=== PATIENT | male | born 1950 | race Caucasian/White ===

== ENCOUNTER 2018-01-05 19:29 | Emergency (ER) | payer OTHER, MEDICARE ==
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
== END 2018-01-05 22:10 | disposition home or self-care (01) ==
LOC: ERS 19:29
DX: S01.01XA Laceration without foreign body of scalp, initial encounter (principal); Z86.73 Personal history of transient ischemic attack (TIA), and cerebral infarction without residual deficits; F41.9 Anxiety disorder, unspecified; F32.9 Major depressive disorder, single episode, unspecified; Z79.899 Other long term (current) drug therapy; W22.8XXA Striking against or struck by other objects, initial encounter
CPT/HCPCS: 12002; 70450

== ENCOUNTER 2018-05-31 15:16 | Emergency (ER) | payer MEDICARE, OTHER ==
--- NOTE | 2018-05-31 16:21 | RAD ---
CHEST TWO VIEWS: History: Fall. Chest injury. FINDINGS: Cardiac silhouette and pulmonary vasculature are unremarkable. Lungs are slightly hyperinflated. Medi astinum is midline. No confluent airspace consolidation, pneumothorax or pleural fluid. Irregularity of the posterolateral aspect of right ribs 7 and 8 shows corticated margins and has the appearance of old healed fractures. IMPRESSION: Probably old right posterolateral midrib fractures. No evidence of pneumothorax. POS: [facility]
--- NOTE | 2018-05-31 16:24 | RAD ---
RIGHT SHOULDER 3 VIEWS: Date: 05/31/18 HISTORY: Fall. Pain. COMPARISON: None. FINDINGS: There are multiple right-sided posterior rib fractures involving the right posterior 7th and 8th ribs . No underlying pneumothorax is appreciated. The right glenohumeral joint alignment is normal. Acromioclavicular alignment is normal. IMPRESSION: Right posterior 7th and 8th rib fractures. No underlying pneumothorax. POS: [facility]
--- NOTE | 2018-05-31 18:43 | RAD ---
RIGHT RIBS THREE VIEW 05/31/18 INDICATION: Fall with right rib pain. COMPARISON: None. FINDINGS: There are mildly displaced anterolateral right 5th through 9th rib fractures. No contusion is grossly evident. No pneumothorax is demonstrated. The visualized heart appears within normal limits. IMPRESSION: Mildly displaced anterolateral right 5th through 9th rib fractures. POS: [facility]
[2018-05-31] MEDS ORDERED: traMADol HCl 50 MG TAB ONE ×2 (19:00→19:01)
[2018-05-31] MEDS ORDERED: Ketorolac Tromethamine 60 MG/2 ML VIAL ONE ×2 (19:01)
== END 2018-05-31 19:50 | disposition home or self-care (01) ==
LOC: ERS 15:16
DX: S22.41XA Multiple fractures of ribs, right side, initial encounter for closed fracture (principal); F41.9 Anxiety disorder, unspecified; F32.9 Major depressive disorder, single episode, unspecified; Z86.73 Personal history of transient ischemic attack (TIA), and cerebral infarction without residual deficits; Z79.899 Other long term (current) drug therapy; W19.XXXA Unspecified fall, initial encounter
CPT/HCPCS: 71046; 96372; J1885

== ENCOUNTER 2019-02-07 12:25 | Emergency (ER) | payer OTHER ==
--- NOTE | 2019-02-07 13:56 | RAD ---
Exam:2 views right femur HISTORY: Pain COMPARISON: None FINDINGS: No fracture. Cortical irregularity. No periosteal reaction. IMPRESSION: No fracture.
--- NOTE | 2019-02-07 13:57 | RAD ---
Exam:4 views right HISTORY: Pain. COMPARISON: None FINDINGS: No significant suprapatellar effusion. No fracture or malalignment. There is mild bone demineralization Moderate to severe degenerative change in the medial compartment. Lateral compartment is unremarkable . Moderate degenerative change patellofemoral compartment. IMPRESSION: Bicompartmental degenerative change.
--- NOTE | 2019-02-07 13:57 | RAD ---
Exam:2 views right hip HISTORY: Pain COMPARISON: None FINDINGS: Mild to moderate loss of joint space height. Contour of the femoral head is maintained. Fem oral length is unremarkable. Visualized bony pelvis is unremarkable. IMPRESSION: Moderate loss of right hip joint space height.
[2019-02-07 14:16] LABS: #Eosinphils 0.1 thou/uL (0.0-0.7); #Lymphocytes 2.2 thou/uL (1.20-3.40); #Monocytes 0.4 thou/uL (0.11-0.59); #Neutrophils 4.1 thou/uL (1.40-6.50); %Basophils 0.5 % (0.0-1.0); %Eosinophils 1.1 % (0.0-10.0); %Lymphocytes 32.3 % (21.0-51.0); %Neutrophils 60.1 % (42.0-75.0); Hemoglobin 13.4 g/dL (14.0-18.0); Mean Corpuscular Hemoglobin 31.9 pg (27.0-31.0); Mean Platelet Volume 8.5 fL (7.4-10.4); Platelet Count 180 thou/uL (130-400); RBC Distribution Width 15.3 % (11.5-14.5); Red Blood Cell (RBC) Count 4.21 mill/uL (4.70-6.10); White Blood Cell (WBC) Count 6.8 thou/uL (4.8-10.8)
[2019-02-07] MEDS ORDERED: Morphine 4 MG/ML VIAL ONE (14:28)
--- NOTE | 2019-02-07 14:29 | CT ---
CT PELVIS WITHOUT CONTRAST: HISTORY: Hip, thigh and knee pain, onset two days ago. Difficulty walking. COMPARISON: None. FINDINGS: The visualized mesentery and alimentary canal are grossly unremarkable. No evidence of bowel obstruct ion. Scattered fecal material in a nondistended, nondilated colon. Mild prominence of the urinary bladder with bladder wall mucosal thickening, nonspecific. Cystoscopy is recommended on a non-emergent basis to exclude underlying neoplasm. Sacral alae appear to be intact. Fat attenuation of the neural foramina is noted. Sacroiliac joints are patent and symmetric. The bony pelvis is intact. Both obturator rings are intact. Unremarkable symphysis pubis. The contour of both femoral heads is maintained. There is no evidence of a right or left hip fracture . Mild degenerative change involving both hip joint spaces. Moderate to severe central canal stenosis at L4-L5 due to degenerative disc disease. Vacuum disc phen omenon at L5-S1 without high grade central canal stenosis. Moderate left neural foraminal narrowing at L5-S1. IMPRESSION: 1. No evidence of acute pathology with regard to the right hip. MRI if clinically indicated. 2. Mucosal thickening of the urinary bladder. Non-emergent cystoscopy. 3. Degenerative changes of the lumbar spine as described above. Transcribed Date/Time: 02/07/2019 2:33 PM
[2019-02-07 14:41] LABS: ALT (SGPT) 13 U/L (8-55); AST (SGOT) 16 U/L (5-34); Albumin 4.5 g/dL (3.4-4.8); Alkaline Phosphatase 107 U/L (40-110); Anion Gap 13 mmol/L (10-20); BUN (Urea Nitrogen) 11 mg/dL (8.4-25.7); Bilirubin, Total 0.6 mg/dL (0.2-1.2); CK (CPK) 38 U/L (30-200); CRP (Inflammatory) 0.95 mg/dL (= or < 0.5); Calc. Creatinine Clearance 0 mL/min (70-130); Calcium 9.1 mg/dL (7.8-10.44); Carbon Dioxide 28 mmol/L (23-31); Chloride 102 mmol/L (98-107); Estimated GFR-MDRD Greater than 90; Globulin 2.3 g/dL (2.4-3.5); Glucose 143 mg/dL (80-115); Lipase 15 U/L (8-78); Potassium 3.8 mmol/L (3.5-5.1); Protein, Total 6.8 g/dL (5.8-8.1); Sodium 139 mmol/L (136-145)
[2019-02-07 16:57] LABS: Bilirubin Negative (Negative); Blood, Urine Negative (Negative); Clarity Clear (Clear); Glucose, Urine (Dipstick) Normal (Negative); Leukocyte Negative Leu/uL (Negative); Nitrite Negative (Negative); Protein, Urine (Dipstick) Negative (Neg-Trace); Urobilinogen Normal mg/dL (Less than 2)
== END 2019-02-07 23:30 ==
LOC: ERS 12:25
DX: M25.551 Pain in right hip (principal); F41.9 Anxiety disorder, unspecified; Z86.73 Personal history of transient ischemic attack (TIA), and cerebral infarction without residual deficits; Z79.899 Other long term (current) drug therapy; Z79.51 Long term (current) use of inhaled steroids
CPT/HCPCS: 36415; 72192; 80053; 81003; 82550; 83690; 85025; 85652; 86140; 96361; 96374; J2270

== ENCOUNTER 2019-06-04 09:52 | Emergency (ER) | payer OTHER ==
--- NOTE | 2019-06-04 10:23 | RAD ---
EXAM: CHEST TWO VIEWS 06/04/2019 10:20 AM HISTORY: Cough and congestion COMPARISON: May 31, 2018 FINDINGS: Lungs: Areas of mild scarring involving the right lung base are stable. No new airspace opacity or p leural effusion is demonstrated. Heart: Mild cardiomegaly is stable. Pulmonary Vessels: Normal. Costophrenic Angles: Clear. Pneumothorax: None. Osseous Structures: There is stable healed fracture deformity involving the posterior lateral right seventh and eighth ribs. There is scattered degenerative and osteoarthritic change present. Additional Findings: None. IMPRESSION: No significant acute intrathoracic disease. Stable chronic lung changes. Stable mild cardiomegaly.
[2019-06-04] MEDS ORDERED: Lidocaine 1% PF 5 ML VIAL ONE (11:14)
[2019-06-04] MEDS ORDERED: cefTRIAXone\\ROCEPHIN 1 GM VIAL ONE (11:14)
[2019-06-04] MEDS ORDERED: Azithromycin 250 MG TAB ONE (11:14)
== END 2019-06-04 11:58 | disposition home or self-care (01) ==
LOC: ERS 09:52
DX: R05 Cough (principal); R09.02 Hypoxemia; K56.609 Unspecified intestinal obstruction, unspecified as to partial versus complete obstruction; F41.9 Anxiety disorder, unspecified; F32.9 Major depressive disorder, single episode, unspecified; Z86.73 Personal history of transient ischemic attack (TIA), and cerebral infarction without residual deficits; Z79.899 Other long term (current) drug therapy
CPT/HCPCS: 71046; 93005; 96372; J0696; J2001

== ENCOUNTER 2022-07-20 15:56 | Inpatient (IN) | payer OTHER ==
[~2022-07-20 15:56] MED LIST: Iopamidol-370 76% 500 ML MDV (1 ML CHARGE) ONE
[2022-07-20 16:48] LABS: Bacteria/HPF None Seen HPF (None Seen); Bilirubin Negative (Negative); Blood, Urine 2+ (Negative); Glucose, Urine (Dipstick) Normal (Negative); Ketone, Urine Negative (Negative); Leukocyte Negative Leu/uL (Negative); Nitrite Negative (Negative); Protein, Urine (Dipstick) 10 mg/dL (Neg-Trace); RBC/HPF Greater than 50 HPF (0-3); Specific Gravity, Urine 1.025 (1.002-1.036); Squamous Epithelial None Seen HPF (0-3); Urobilinogen Normal mg/dL (Less than 2); WBC/HPF 0-3 HPF (0-3); pH, Urine 5.5 (5.0-9.0)
[2022-07-20 16:50] LABS: Clarity Cloudy (Clear)
[2022-07-20 16:55] LABS: #Eosinphils 0.1 thou/uL (0.0-0.7); #Lymphocytes 1.5 thou/uL (1.20-3.40); #Monocytes 0.4 thou/uL (0.11-0.59); #Neutrophils 7.4 thou/uL (1.40-6.50); %Basophils 0.3 % (0.0-1.0); %Eosinophils 1.2 % (0.0-10.0); %Lymphocytes 15.9 % (21.0-51.0); %Monocytes 4.1 % (0.0-10.0); %Neutrophils 78.4 % (42.0-75.0); Hemoglobin 12.3 g/dL (14.0-18.0); Mean Corpuscular HGB CONC 30.6 g/dL (32.0-36.0); Mean Corpuscular Hemoglobin 29.1 pg (27.0-31.0); Mean Corpuscular Volume 95.2 fl (78.0-98.0); Mean Platelet Volume 8.7 fL (7.4-10.4); Platelet Count 255 10x3/uL (130-400); RBC Distribution Width 18.7 % (11.5-14.5); Red Blood Cell (RBC) Count 4.21 mill/uL (4.70-6.10); White Blood Cell (WBC) Count 9.5 10x3/uL (4.8-10.8)
[2022-07-20 17:20] LABS: ALT (SGPT) 10 U/L (8-55); AST (SGOT) 12 U/L (5-34); Alkaline Phosphatase 100 U/L (40-110); Anion Gap 14 mmol/L (10-20); BUN (Urea Nitrogen) 12 mg/dL (8.4-25.7); Bilirubin, Total 0.9 mg/dL (0.2-1.2); Calc. Creatinine Clearance 0 mL/min (70-130); Calcium 9.4 mg/dL (7.8-10.44); Carbon Dioxide 26 mmol/L (23-31); Chloride 106 mmol/L (98-107); Estimated GFR 92; Globulin 2.4 g/dL (2.4-3.5); Glucose 96 mg/dL (83-110); Lipase 10 U/L (8-78); Potassium 3.5 mmol/L (3.5-5.1); Protein, Total 6.4 g/dL (5.8-8.1); Sodium 142 mmol/L (136-145)
[2022-07-20] MEDS ORDERED: Acetaminophen 325 MG TAB PO PRN (22:29)
[2022-07-20] MEDS ORDERED: Ondansetron PF 4 MG/2 ML Vial IVP PRN (22:29)
[2022-07-20 22:34] LABS: Troponin I Less than 0.010 ng/mL (< 0.028)
[2022-07-20] MEDS ORDERED: Mineral Oil ENEMA PR SCH (22:45)
[2022-07-20 23:21] LABS: Amphetamine Not Detected (NotDetected); Barbiturates Screen Detected (NotDetected); Benzodiazepine Screen Not Detected (NotDetected); Cocaine Metabolite Screen Not Detected (NotDetected); Methadone Not Detected (NotDetected); Methamphetamine Not Detected (NotDetected); Opiate Screen Not Detected (NotDetected); Oxycodone Screen Not Detected (NotDetected); Phencyclidine (PCP) Not Detected (NotDetected); THC/Cannabinoid Screen Not Detected (NotDetected); Tricyclic Screen Not Detected (NotDetected)
[2022-07-21] MEDS ORDERED: VANCOMYCIN 2 GRAM/500 ML BAG 2 GM in Premix Bag 1 BAG IVPB SCH (00:15)
[2022-07-21 02:45] LABS: #Basophils 0.1 thou/uL (0.0-0.2); #Eosinphils 0.2 thou/uL (0.0-0.7); #Lymphocytes 2.2 thou/uL (1.20-3.40); #Monocytes 0.4 thou/uL (0.11-0.59); #Neutrophils 4.2 thou/uL (1.40-6.50); %Basophils 0.8 % (0.0-1.0); %Eosinophils 2.6 % (0.0-10.0); %Lymphocytes 30.8 % (21.0-51.0); %Monocytes 6.3 % (0.0-10.0); %Neutrophils 59.6 % (42.0-75.0); Hemoglobin 11.7 g/dL (14.0-18.0); Mean Corpuscular HGB CONC 33.1 g/dL (32.0-36.0); Mean Corpuscular Hemoglobin 31.7 pg (27.0-31.0); Mean Corpuscular Volume 95.8 fl (78.0-98.0); Mean Platelet Volume 8.9 fL (7.4-10.4); Platelet Count 210 10x3/uL (130-400); RBC Distribution Width 18.5 % (11.5-14.5)
[2022-07-21 03:16] LABS: Troponin I Less than 0.010 ng/mL (< 0.028)
[2022-07-21 03:18] LABS: Anion Gap 13 mmol/L (10-20); BUN (Urea Nitrogen) 10 mg/dL (8.4-25.7); Calc. Creatinine Clearance 0 mL/min (70-130); Calcium 9.1 mg/dL (7.8-10.44); Carbon Dioxide 26 mmol/L (23-31); Chloride 107 mmol/L (98-107); Estimated GFR 93; Glucose 80 mg/dL (83-110); Potassium 3.3 mmol/L (3.5-5.1); Sodium 143 mmol/L (136-145)
[2022-07-21 04:20] VITALS: BMI 26.4
[2022-07-21] MEDS ORDERED: FISH OIL CA PO SCH (09:00)
[2022-07-21] MEDS ORDERED: [UNRECOGNIZED DRUG - OTHER] PO SCH (09:00)
[2022-07-21] MEDS ORDERED: Senokot S 8.6-50 MG TAB PO SCH (09:00)
[2022-07-21] MEDS ORDERED: EPA PO SCH (09:00)
[2022-07-21] MEDS ORDERED: DHA PO SCH (09:00)
[2022-07-21] MEDS ORDERED: Polyethylene Glycol 3350 17 GM Packet PO SCH (09:00)
[2022-07-21] MEDS ORDERED: Non-Formulary Item 1 EACH (Pregabalin [Lyrica] 150 MG Capsule) PO SCH (09:00)
[2022-07-21] MEDS ORDERED: Lidocaine 4% Patch TD SCH (09:00)
[2022-07-21] MEDS ORDERED: OMEGA PO SCH (09:00)
[2022-07-21] MEDS: Primidone 50 MG TAB PO SCH ×2 (09:30→21:44)
[2022-07-21] MEDS: Trospium 20 MG TAB PO SCH ×2 (09:30→21:45)
[2022-07-21] MEDS: Clopidogrel Bisulfate 75 MG TAB PO SCH (09:31)
[2022-07-21] MEDS: Bupropion 150 MG SR TAB PO SCH (09:31)
[2022-07-21] MEDS: Senokot S 8.6-50 MG TAB PO SCH ×2 (10:33→21:46)
[2022-07-21] MEDS: VANCOMYCIN 1.25 GM/250 ML BAG 1.25 GM in Premix Bag 1 BAG IVPB SCH (14:16)
[2022-07-21] MEDS ORDERED: GoLYTELY 4,000 ml Bottle PO SCH (17:45)
[2022-07-21] MEDS ORDERED: DULoxetine 30 MG CAP PO SCH (21:00)
[2022-07-21] MEDS ORDERED: Cetirizine HCl 10 MG TAB PO SCH (21:00)
[2022-07-21] MEDS ORDERED: Non-Formulary Item 1 EACH (Melatonin [Melatonin] 5 MG Tablet) PO SCH (21:00)
[2022-07-21] MEDS: Aripiprazole 10 MG TAB PO SCH (21:44)
[2022-07-21] MEDS: DULoxetine 30 MG CAP PO SCH (21:44)
[2022-07-21] MEDS: Melatonin 3 MG TAB PO SCH (21:44)
[2022-07-21] MEDS: Pregabalin 75 MG CAP PO SCH (21:45)
[2022-07-21] MEDS: Tamsulosin HCl 0.4 MG CAP PO SCH (21:45)
[2022-07-21] MEDS: Loratadine 10 MG TAB PO SCH (21:45)
[2022-07-21] MEDS: Cyproheptadine 4 MG TAB PO SCH (21:45)
[2022-07-21] MEDS: Polyethylene Glycol 3350 17 GM Packet PO SCH (21:46)
[2022-07-21] MEDS: Transdermal Patch Removal TOP SCH (21:47)
[2022-07-22] MEDS: VANCOMYCIN 1.25 GM/250 ML BAG 1.25 GM in Premix Bag 1 BAG IVPB SCH ×2 (02:17→14:19)
[2022-07-22] MEDS: Calcium Carbonate 500 MG ChewTAB PO PRN (03:00)
[2022-07-22 05:28] LABS: #Eosinphils 0.1 thou/uL (0.0-0.7); #Lymphocytes 1.8 thou/uL (1.20-3.40); #Monocytes 0.4 thou/uL (0.11-0.59); #Neutrophils 11.9 thou/uL (1.40-6.50); %Basophils 0.1 % (0.0-1.0); %Eosinophils 0.7 % (0.0-10.0); %Lymphocytes 12.7 % (21.0-51.0); %Monocytes 3.1 % (0.0-10.0); %Neutrophils 83.4 % (42.0-75.0); Hemoglobin 13.5 g/dL (14.0-18.0); Mean Corpuscular HGB CONC 31.7 g/dL (32.0-36.0); Mean Corpuscular Hemoglobin 30.1 pg (27.0-31.0); Mean Platelet Volume 8.7 fL (7.4-10.4); Platelet Count 254 10x3/uL (130-400); RBC Distribution Width 18.8 % (11.5-14.5); Red Blood Cell (RBC) Count 4.49 mill/uL (4.70-6.10); White Blood Cell (WBC) Count 14.3 10x3/uL (4.8-10.8)
[2022-07-22 05:48] LABS: Anion Gap 14 mmol/L (10-20); BUN (Urea Nitrogen) 10 mg/dL (8.4-25.7); Calc. Creatinine Clearance 100 mL/min (70-130); Calcium 9.9 mg/dL (7.8-10.44); Carbon Dioxide 27 mmol/L (23-31); Chloride 106 mmol/L (98-107); Estimated GFR 94; Glucose 119 mg/dL (83-110); Potassium 3.4 mmol/L (3.5-5.1); Sodium 144 mmol/L (136-145)
[2022-07-22] MEDS: Primidone 50 MG TAB PO SCH ×2 (09:30→21:35)
[2022-07-22] MEDS: Lidocaine 4% Patch TD SCH (09:30)
[2022-07-22] MEDS: Fish Oil 1,000 MG CAP PO SCH (09:30)
[2022-07-22] MEDS: Clopidogrel Bisulfate 75 MG TAB PO SCH (09:30)
[2022-07-22] MEDS: Trospium 20 MG TAB PO SCH ×2 (09:30→21:35)
[2022-07-22] MEDS: Bupropion 150 MG SR TAB PO SCH (09:30)
[2022-07-22] MEDS: Pregabalin 75 MG CAP PO SCH ×2 (09:31→21:35)
[2022-07-22] MEDS: Senokot S 8.6-50 MG TAB PO SCH ×2 (09:31→21:34)
[2022-07-22] MEDS: Polyethylene Glycol 3350 17 GM Packet PO SCH ×2 (09:33→21:35)
[2022-07-22 12:50] LABS: Vancomycin, Trough 12.5 ug/mL
[2022-07-22] MEDS: Cyproheptadine 4 MG TAB PO SCH (21:34)
[2022-07-22] MEDS: DULoxetine 30 MG CAP PO SCH (21:35)
[2022-07-22] MEDS: Cephalexin 250 MG CAP PO SCH ×2 (21:35→23:23)
[2022-07-22] MEDS: Tamsulosin HCl 0.4 MG CAP PO SCH (21:35)
[2022-07-22] MEDS: Loratadine 10 MG TAB PO SCH (21:35)
[2022-07-22] MEDS: Melatonin 3 MG TAB PO SCH (21:35)
[2022-07-22] MEDS: Aripiprazole 10 MG TAB PO SCH (21:35)
[2022-07-22] MEDS: Transdermal Patch Removal TOP SCH (21:47)
[2022-07-23 05:38] LABS: #Eosinphils 0.1 thou/uL (0.0-0.7); #Lymphocytes 2.3 thou/uL (1.20-3.40); #Monocytes 0.4 thou/uL (0.11-0.59); #Neutrophils 5.2 thou/uL (1.40-6.50); %Basophils 0.5 % (0.0-1.0); %Eosinophils 1.3 % (0.0-10.0); %Lymphocytes 28.5 % (21.0-51.0); %Monocytes 5.1 % (0.0-10.0); %Neutrophils 64.5 % (42.0-75.0); Hemoglobin 11.7 g/dL (14.0-18.0); Mean Corpuscular HGB CONC 32.4 g/dL (32.0-36.0); Mean Corpuscular Volume 95.5 fl (78.0-98.0); Mean Platelet Volume 8.6 fL (7.4-10.4); Platelet Count 195 10x3/uL (130-400); RBC Distribution Width 18.6 % (11.5-14.5); Red Blood Cell (RBC) Count 3.77 mill/uL (4.70-6.10)
[2022-07-23 06:04] LABS: Anion Gap 14 mmol/L (10-20); BUN (Urea Nitrogen) 13 mg/dL (8.4-25.7); Calc. Creatinine Clearance 102 mL/min (70-130); Calcium 9.2 mg/dL (7.8-10.44); Carbon Dioxide 24 mmol/L (23-31); Chloride 109 mmol/L (98-107); Estimated GFR 95; Glucose 108 mg/dL (83-110); Potassium 3.5 mmol/L (3.5-5.1); Sodium 143 mmol/L (136-145)
[2022-07-23] MEDS: Cephalexin 250 MG CAP PO SCH ×3 (06:16→17:43)
[2022-07-23] MEDS: Lidocaine 4% Patch TD SCH (10:01)
[2022-07-23] MEDS: Fish Oil 1,000 MG CAP PO SCH (10:02)
[2022-07-23] MEDS: Pregabalin 75 MG CAP PO SCH ×2 (10:02→20:30)
[2022-07-23] MEDS: Bupropion 150 MG SR TAB PO SCH (10:05)
[2022-07-23] MEDS: Senokot S 8.6-50 MG TAB PO SCH ×2 (10:06→20:31)
[2022-07-23] MEDS: Clopidogrel Bisulfate 75 MG TAB PO SCH (10:07)
[2022-07-23] MEDS: Primidone 50 MG TAB PO SCH ×2 (10:07→20:31)
[2022-07-23] MEDS: Polyethylene Glycol 3350 17 GM Packet PO SCH ×2 (10:07→20:30)
[2022-07-23] MEDS: Trospium 20 MG TAB PO SCH ×2 (10:08→20:30)
[2022-07-23] MEDS: Acetaminophen 500 MG TAB PO SCH ×2 (16:00→20:31)
[2022-07-23] MEDS: Cyproheptadine 4 MG TAB PO SCH (20:29)
[2022-07-23] MEDS: DULoxetine 30 MG CAP PO SCH (20:30)
[2022-07-23] MEDS: Melatonin 3 MG TAB PO SCH (20:31)
[2022-07-23] MEDS: Tamsulosin HCl 0.4 MG CAP PO SCH (20:31)
[2022-07-23] MEDS: Loratadine 10 MG TAB PO SCH (20:31)
[2022-07-23] MEDS: Aripiprazole 10 MG TAB PO SCH (20:31)
[2022-07-23] MEDS: Transdermal Patch Removal TOP SCH (20:33)
[2022-07-24] MEDS: Cephalexin 250 MG CAP PO SCH ×6 (00:22→22:20)
[2022-07-24] MEDS: Lidocaine 4% Patch TD SCH (10:11)
[2022-07-24] MEDS: Polyethylene Glycol 3350 17 GM Packet PO SCH ×2 (10:11→22:19)
[2022-07-24] MEDS: Fish Oil 1,000 MG CAP PO SCH (10:12)
[2022-07-24] MEDS: Trospium 20 MG TAB PO SCH ×2 (10:12→22:20)
[2022-07-24] MEDS: Senokot S 8.6-50 MG TAB PO SCH ×2 (10:13→22:19)
[2022-07-24] MEDS: Bupropion 150 MG SR TAB PO SCH (10:13)
[2022-07-24] MEDS: Pregabalin 75 MG CAP PO SCH ×2 (10:13→22:20)
[2022-07-24] MEDS: Primidone 50 MG TAB PO SCH ×2 (10:15→22:20)
[2022-07-24] MEDS: Clopidogrel Bisulfate 75 MG TAB PO SCH (10:15)
[2022-07-24] MEDS: Acetaminophen 500 MG TAB PO SCH ×3 (10:16→22:21)
[2022-07-24] MEDS ORDERED: GoLYTELY 4,000 ml Bottle PO SCH (18:45)
[2022-07-24] MEDS: Loratadine 10 MG TAB PO SCH (22:19)
[2022-07-24] MEDS: Tamsulosin HCl 0.4 MG CAP PO SCH (22:19)
[2022-07-24] MEDS: Melatonin 3 MG TAB PO SCH (22:19)
[2022-07-24] MEDS: DULoxetine 30 MG CAP PO SCH (22:19)
[2022-07-24] MEDS: Cyproheptadine 4 MG TAB PO SCH (22:20)
[2022-07-24] MEDS: Aripiprazole 10 MG TAB PO SCH (22:20)
[2022-07-24] MEDS: Transdermal Patch Removal TOP SCH (22:22)
[2022-07-25] MEDS: Cephalexin 250 MG CAP PO SCH ×4 (06:32→23:08)
[2022-07-25 08:59] LABS: #Eosinphils 0.2 thou/uL (0.0-0.7); #Lymphocytes 1.4 thou/uL (1.20-3.40); #Monocytes 0.3 thou/uL (0.11-0.59); #Neutrophils 4.6 thou/uL (1.40-6.50); %Basophils 0.4 % (0.0-1.0); %Eosinophils 2.4 % (0.0-10.0); %Lymphocytes 21.4 % (21.0-51.0); %Monocytes 4.2 % (0.0-10.0); %Neutrophils 71.6 % (42.0-75.0); Mean Corpuscular HGB CONC 32.2 g/dL (32.0-36.0); Mean Corpuscular Hemoglobin 30.7 pg (27.0-31.0); Mean Corpuscular Volume 95.4 fl (78.0-98.0); Mean Platelet Volume 9.2 fL (7.4-10.4); Platelet Count 169 10x3/uL (130-400); RBC Distribution Width 18.4 % (11.5-14.5); Red Blood Cell (RBC) Count 3.56 mill/uL (4.70-6.10); White Blood Cell (WBC) Count 6.5 10x3/uL (4.8-10.8)
[2022-07-25] MEDS: Senokot S 8.6-50 MG TAB PO SCH ×2 (09:04→21:22)
[2022-07-25] MEDS: Fish Oil 1,000 MG CAP PO SCH (09:04)
[2022-07-25] MEDS: Primidone 50 MG TAB PO SCH ×2 (09:04→21:23)
[2022-07-25] MEDS: Pregabalin 75 MG CAP PO SCH ×2 (09:04→21:24)
[2022-07-25] MEDS: Bupropion 150 MG SR TAB PO SCH (09:04)
[2022-07-25] MEDS: Acetaminophen 500 MG TAB PO SCH ×3 (09:05→21:23)
[2022-07-25] MEDS: Polyethylene Glycol 3350 17 GM Packet PO SCH ×2 (09:05→21:24)
[2022-07-25] MEDS: Clopidogrel Bisulfate 75 MG TAB PO SCH (09:05)
[2022-07-25] MEDS: Trospium 20 MG TAB PO SCH ×2 (09:05→21:24)
[2022-07-25] MEDS: Lidocaine 4% Patch TD SCH (09:17)
[2022-07-25 09:25] LABS: ALT (SGPT) 7 U/L (8-55); AST (SGOT) 7 U/L (5-34); Albumin 3.5 g/dL (3.4-4.8); Alkaline Phosphatase 79 U/L (40-110); Anion Gap 11 mmol/L (10-20); BUN (Urea Nitrogen) 13 mg/dL (8.4-25.7); Bilirubin, Total 0.7 mg/dL (0.2-1.2); Calc. Creatinine Clearance 105 mL/min (70-130); Calcium 9.1 mg/dL (7.8-10.44); Carbon Dioxide 27 mmol/L (23-31); Chloride 106 mmol/L (98-107); Estimated GFR 96; Glucose 88 mg/dL (83-110); Potassium 3.9 mmol/L (3.5-5.1); Protein, Total 5.5 g/dL (5.8-8.1); Sodium 140 mmol/L (136-145)
[2022-07-25] MEDS: DULoxetine 30 MG CAP PO SCH (21:22)
[2022-07-25] MEDS: Cyproheptadine 4 MG TAB PO SCH (21:22)
[2022-07-25] MEDS: Tamsulosin HCl 0.4 MG CAP PO SCH (21:22)
[2022-07-25] MEDS: Melatonin 3 MG TAB PO SCH (21:23)
[2022-07-25] MEDS: Aripiprazole 10 MG TAB PO SCH (21:23)
[2022-07-25] MEDS: Loratadine 10 MG TAB PO SCH (21:23)
[2022-07-25] MEDS: Transdermal Patch Removal TOP SCH (21:24)
[2022-07-26 05:21] LABS: #Eosinphils 0.2 thou/uL (0.0-0.7); #Lymphocytes 1.9 thou/uL (1.20-3.40); #Monocytes 0.3 thou/uL (0.11-0.59); %Basophils 0.2 % (0.0-1.0); %Eosinophils 2.6 % (0.0-10.0); %Lymphocytes 29.7 % (21.0-51.0); %Monocytes 4.1 % (0.0-10.0); %Neutrophils 63.3 % (42.0-75.0); Mean Corpuscular HGB CONC 32.9 g/dL (32.0-36.0); Mean Corpuscular Hemoglobin 31.3 pg (27.0-31.0); Mean Corpuscular Volume 95.2 fl (78.0-98.0); Mean Platelet Volume 9.1 fL (7.4-10.4); Platelet Count 179 10x3/uL (130-400); Red Blood Cell (RBC) Count 3.51 mill/uL (4.70-6.10); White Blood Cell (WBC) Count 6.4 10x3/uL (4.8-10.8)
[2022-07-26] MEDS: Cephalexin 250 MG CAP PO SCH ×3 (05:22→17:08)
[2022-07-26 05:44] LABS: ALT (SGPT) 7 U/L (8-55); AST (SGOT) 8 U/L (5-34); Albumin 3.7 g/dL (3.4-4.8); Alkaline Phosphatase 84 U/L (40-110); Anion Gap 13 mmol/L (10-20); BUN (Urea Nitrogen) 11 mg/dL (8.4-25.7); Bilirubin, Total 0.6 mg/dL (0.2-1.2); Calc. Creatinine Clearance 94 mL/min (70-130); Calcium 9.2 mg/dL (7.8-10.44); Carbon Dioxide 26 mmol/L (23-31); Chloride 105 mmol/L (98-107); Estimated GFR 92; Globulin 2.1 g/dL (2.4-3.5); Glucose 85 mg/dL (83-110); Potassium 3.5 mmol/L (3.5-5.1); Protein, Total 5.8 g/dL (5.8-8.1); Sodium 140 mmol/L (136-145)
[2022-07-26] MEDS: Lidocaine 4% Patch TD SCH (08:13)
[2022-07-26] MEDS: Polyethylene Glycol 3350 17 GM Packet PO SCH ×2 (08:14→21:57)
[2022-07-26] MEDS: Fish Oil 1,000 MG CAP PO SCH (08:15)
[2022-07-26] MEDS: Senokot S 8.6-50 MG TAB PO SCH ×2 (08:15→21:46)
[2022-07-26] MEDS: Pregabalin 75 MG CAP PO SCH ×2 (08:15→21:45)
[2022-07-26] MEDS: Primidone 50 MG TAB PO SCH ×2 (08:15→21:47)
[2022-07-26] MEDS: Trospium 20 MG TAB PO SCH ×2 (08:15→21:47)
[2022-07-26] MEDS: Clopidogrel Bisulfate 75 MG TAB PO SCH (08:15)
[2022-07-26] MEDS: Acetaminophen 500 MG TAB PO SCH ×3 (08:16→21:47)
[2022-07-26] MEDS: Bupropion 150 MG SR TAB PO SCH (08:16)
[2022-07-26] MEDS: DULoxetine 30 MG CAP PO SCH (21:46)
[2022-07-26] MEDS: Loratadine 10 MG TAB PO SCH (21:46)
[2022-07-26] MEDS: Melatonin 3 MG TAB PO SCH (21:46)
[2022-07-26] MEDS: Cyproheptadine 4 MG TAB PO SCH (21:47)
[2022-07-26] MEDS: Tamsulosin HCl 0.4 MG CAP PO SCH (21:47)
[2022-07-26] MEDS: Aripiprazole 10 MG TAB PO SCH (21:47)
[2022-07-26] MEDS: Transdermal Patch Removal TOP SCH (23:43)
[2022-07-27] MEDS: Cephalexin 250 MG CAP PO SCH ×4 (00:20→17:31)
[2022-07-27 05:26] LABS: #Eosinphils 0.2 thou/uL (0.0-0.7); #Lymphocytes 2.2 thou/uL (1.20-3.40); #Monocytes 0.4 thou/uL (0.11-0.59); #Neutrophils 3.9 thou/uL (1.40-6.50); %Basophils 0.4 % (0.0-1.0); %Eosinophils 2.8 % (0.0-10.0); %Lymphocytes 32.7 % (21.0-51.0); %Monocytes 5.4 % (0.0-10.0); %Neutrophils 58.7 % (42.0-75.0); Hemoglobin 12.2 g/dL (14.0-18.0); Mean Corpuscular HGB CONC 32.3 g/dL (32.0-36.0); Mean Corpuscular Hemoglobin 30.9 pg (27.0-31.0); Mean Corpuscular Volume 95.7 fl (78.0-98.0); Mean Platelet Volume 9.3 fL (7.4-10.4); Platelet Count 179 10x3/uL (130-400); RBC Distribution Width 18.6 % (11.5-14.5); Red Blood Cell (RBC) Count 3.95 mill/uL (4.70-6.10); White Blood Cell (WBC) Count 6.7 10x3/uL (4.8-10.8)
[2022-07-27 05:52] LABS: ALT (SGPT) 14 U/L (8-55); AST (SGOT) 17 U/L (5-34); Albumin 3.9 g/dL (3.4-4.8); Alkaline Phosphatase 95 U/L (40-110); Anion Gap 15 mmol/L (10-20); BUN (Urea Nitrogen) 8 mg/dL (8.4-25.7); Bilirubin, Total 0.5 mg/dL (0.2-1.2); Calc. Creatinine Clearance 111 mL/min (70-130); Calcium 9.5 mg/dL (7.8-10.44); Carbon Dioxide 24 mmol/L (23-31); Chloride 106 mmol/L (98-107); Estimated GFR 97; Globulin 2.4 g/dL (2.4-3.5); Glucose 88 mg/dL (83-110); Potassium 3.8 mmol/L (3.5-5.1); Protein, Total 6.3 g/dL (5.8-8.1); Sodium 141 mmol/L (136-145)
[2022-07-27] MEDS: Polyethylene Glycol 3350 17 GM Packet PO SCH ×2 (08:57→21:32)
[2022-07-27] MEDS: Senokot S 8.6-50 MG TAB PO SCH ×2 (08:58→21:34)
[2022-07-27] MEDS: Acetaminophen 500 MG TAB PO SCH ×3 (08:59→22:59)
[2022-07-27] MEDS: Pregabalin 75 MG CAP PO SCH ×2 (08:59→21:33)
[2022-07-27] MEDS: Trospium 20 MG TAB PO SCH (09:00)
[2022-07-27] MEDS: Bupropion 150 MG SR TAB PO SCH (09:00)
[2022-07-27] MEDS: Clopidogrel Bisulfate 75 MG TAB PO SCH (09:00)
[2022-07-27] MEDS: Primidone 50 MG TAB PO SCH ×2 (09:00→21:35)
[2022-07-27] MEDS: Fish Oil 1,000 MG CAP PO SCH (09:03)
[2022-07-27] MEDS: Lidocaine 4% Patch TD SCH (09:04)
[2022-07-27] MEDS: Acetaminophen 500 MG TAB PO PRN (11:36)
[2022-07-27] MEDS ORDERED: Fleet Saline Enema 133 ML BOT PR SCH (16:00)
[2022-07-27] MEDS: Tamsulosin HCl 0.4 MG CAP PO SCH (21:32)
[2022-07-27] MEDS: DULoxetine 30 MG CAP PO SCH (21:33)
[2022-07-27] MEDS: Loratadine 10 MG TAB PO SCH (21:34)
[2022-07-27] MEDS: Aripiprazole 10 MG TAB PO SCH (21:34)
[2022-07-27] MEDS: Melatonin 3 MG TAB PO SCH (21:34)
[2022-07-27] MEDS: Transdermal Patch Removal TOP SCH (21:35)
[2022-07-27] MEDS: Cyproheptadine 4 MG TAB PO SCH (21:47)
[2022-07-28] MEDS: Cephalexin 250 MG CAP PO SCH ×5 (00:49→23:09)
[2022-07-28 05:35] LABS: #Basophils 0.1 thou/uL (0.0-0.2); #Eosinphils 0.3 thou/uL (0.0-0.7); #Lymphocytes 2.1 thou/uL (1.20-3.40); #Monocytes 0.4 thou/uL (0.11-0.59); #Neutrophils 3.6 thou/uL (1.40-6.50); %Basophils 0.8 % (0.0-1.0); %Eosinophils 3.9 % (0.0-10.0); %Lymphocytes 32.7 % (21.0-51.0); %Neutrophils 56.6 % (42.0-75.0); Hemoglobin 11.9 g/dL (14.0-18.0); Mean Corpuscular HGB CONC 32.6 g/dL (32.0-36.0); Mean Corpuscular Hemoglobin 31.1 pg (27.0-31.0); Mean Corpuscular Volume 95.3 fl (78.0-98.0); Mean Platelet Volume 9.4 fL (7.4-10.4); Platelet Count 171 10x3/uL (130-400); RBC Distribution Width 18.7 % (11.5-14.5); Red Blood Cell (RBC) Count 3.84 mill/uL (4.70-6.10); White Blood Cell (WBC) Count 6.4 10x3/uL (4.8-10.8)
[2022-07-28 05:43] LABS: ALT (SGPT) 15 U/L (8-55); AST (SGOT) 20 U/L (5-34); Albumin 3.7 g/dL (3.4-4.8); Alkaline Phosphatase 92 U/L (40-110); Anion Gap 14 mmol/L (10-20); BUN (Urea Nitrogen) 7 mg/dL (8.4-25.7); Bilirubin, Total 0.5 mg/dL (0.2-1.2); Calc. Creatinine Clearance 101 mL/min (70-130); Calcium 9.5 mg/dL (7.8-10.44); Carbon Dioxide 25 mmol/L (23-31); Chloride 105 mmol/L (98-107); Estimated GFR 95; Globulin 2.3 g/dL (2.4-3.5); Glucose 82 mg/dL (83-110); Potassium 3.8 mmol/L (3.5-5.1); Sodium 140 mmol/L (136-145)
[2022-07-28] MEDS: Lidocaine 4% Patch TD SCH (09:01)
[2022-07-28] MEDS: Polyethylene Glycol 3350 17 GM Packet PO SCH ×2 (09:02→20:35)
[2022-07-28] MEDS: Senokot S 8.6-50 MG TAB PO SCH ×2 (09:04→20:31)
[2022-07-28] MEDS: Primidone 50 MG TAB PO SCH ×2 (09:05→20:33)
[2022-07-28] MEDS: Acetaminophen 500 MG TAB PO SCH ×3 (09:05→20:34)
[2022-07-28] MEDS: Bupropion 150 MG SR TAB PO SCH (09:06)
[2022-07-28] MEDS: Fish Oil 1,000 MG CAP PO SCH (09:06)
[2022-07-28] MEDS: Pregabalin 75 MG CAP PO SCH ×2 (09:06→20:31)
[2022-07-28] MEDS: Clopidogrel Bisulfate 75 MG TAB PO SCH (09:06)
[2022-07-28] MEDS: Acetaminophen 500 MG TAB PO PRN ×2 (12:03→23:09)
[2022-07-28] MEDS: Fleet Saline Enema 133 ML BOT PR PRN (12:04)
[2022-07-28] MEDS: DULoxetine 30 MG CAP PO SCH (20:30)
[2022-07-28] MEDS: Aripiprazole 10 MG TAB PO SCH (20:32)
[2022-07-28] MEDS: Loratadine 10 MG TAB PO SCH (20:32)
[2022-07-28] MEDS: Tamsulosin HCl 0.4 MG CAP PO SCH (20:33)
[2022-07-28] MEDS: Melatonin 3 MG TAB PO SCH (20:33)
[2022-07-28] MEDS: Cyproheptadine 4 MG TAB PO SCH (20:34)
[2022-07-28] MEDS: Transdermal Patch Removal TOP SCH (20:36)
[2022-07-29 05:22] LABS: Anion Gap 16 mmol/L (10-20); BUN (Urea Nitrogen) 9 mg/dL (8.4-25.7); Calc. Creatinine Clearance 101 mL/min (70-130); Calcium 9.5 mg/dL (7.8-10.44); Carbon Dioxide 24 mmol/L (23-31); Chloride 104 mmol/L (98-107); Estimated GFR 95; Glucose 81 mg/dL (83-110); Potassium 3.8 mmol/L (3.5-5.1); Sodium 140 mmol/L (136-145)
[2022-07-29] MEDS: Cephalexin 250 MG CAP PO SCH ×4 (05:49→23:44)
[2022-07-29] MEDS: Polyethylene Glycol 3350 17 GM Packet PO SCH ×2 (08:41→20:07)
[2022-07-29] MEDS: Senokot S 8.6-50 MG TAB PO SCH ×2 (08:42→20:09)
[2022-07-29] MEDS: Acetaminophen 500 MG TAB PO SCH ×3 (08:42→20:08)
[2022-07-29] MEDS: Lidocaine 4% Patch TD SCH (08:42)
[2022-07-29] MEDS: Fish Oil 1,000 MG CAP PO SCH (08:42)
[2022-07-29] MEDS: Primidone 50 MG TAB PO SCH ×2 (08:42→20:10)
[2022-07-29] MEDS: Pregabalin 75 MG CAP PO SCH ×2 (08:43→20:08)
[2022-07-29] MEDS: Bupropion 150 MG SR TAB PO SCH (08:43)
[2022-07-29] MEDS: Fleet Saline Enema 133 ML BOT PR PRN (13:51)
[2022-07-29] MEDS: Melatonin 3 MG TAB PO SCH (20:09)
[2022-07-29] MEDS: DULoxetine 30 MG CAP PO SCH (20:09)
[2022-07-29] MEDS: Tamsulosin HCl 0.4 MG CAP PO SCH (20:09)
[2022-07-29] MEDS: Loratadine 10 MG TAB PO SCH (20:10)
[2022-07-29] MEDS: Aripiprazole 10 MG TAB PO SCH (20:10)
[2022-07-29] MEDS: Transdermal Patch Removal TOP SCH (20:32)
[2022-07-29] MEDS: Cyproheptadine 4 MG TAB PO SCH (21:08)
[2022-07-30] MEDS: Acetaminophen 500 MG TAB PO PRN (04:30)
[2022-07-30] MEDS: Acetaminophen 500 MG TAB PO SCH ×3 (04:57→20:21)
[2022-07-30] MEDS: Cephalexin 250 MG CAP PO SCH ×2 (05:25→12:06)
[2022-07-30 08:04] LABS: Hemoglobin 14.5 g/dL (14.0-18.0); Mean Corpuscular HGB CONC 31.8 g/dL (32.0-36.0); Mean Corpuscular Hemoglobin 30.1 pg (27.0-31.0); Mean Corpuscular Volume 94.7 fl (78.0-98.0); Mean Platelet Volume 9.2 fL (7.4-10.4); Platelet Count 259 10x3/uL (130-400); RBC Distribution Width 19.3 % (11.5-14.5); White Blood Cell (WBC) Count 26.3 10x3/uL (4.8-10.8)
[2022-07-30 08:15] LABS: Anion Gap 20 mmol/L (10-20); BUN (Urea Nitrogen) 12 mg/dL (8.4-25.7); Calc. Creatinine Clearance 75 mL/min (70-130); Calcium 10.2 mg/dL (7.8-10.44); Carbon Dioxide 26 mmol/L (23-31); Chloride 98 mmol/L (98-107); Estimated GFR 77; Glucose 122 mg/dL (83-110); Potassium 4.4 mmol/L (3.5-5.1); Sodium 140 mmol/L (136-145)
[2022-07-30 08:19] LABS: Band 21 % (5-11); Lymphocytes 4 % (21-51); MDiff Complete? YES; Monocytes 2 % (0-10); Neutrophil 73 % (42-75); Platelet Morphology Comment Appears Adequate; RBC Morphology Normal
[2022-07-30 10:00] LABS: Bacteria/HPF 2+ HPF (None Seen); Bilirubin Negative (Negative); Blood, Urine 3+ (Negative); Clarity Turbid (Clear); Glucose, Urine (Dipstick) Normal (Negative); Ketone, Urine 150 mg/dL (Negative); Leukocyte 500 Leu/uL (Negative); Nitrite Negative (Negative); Protein, Urine (Dipstick) 70 mg/dL (Neg-Trace); RBC/HPF Greater than 50 HPF (0-3); Specific Gravity, Urine 1.018 (1.002-1.036); Squamous Epithelial None Seen HPF (0-3); WBC/HPF Greater than 50 HPF (0-3)
[2022-07-30] MEDS ORDERED: Mineral Oil ENEMA PR SCH ×5 (10:30→21:00)
[2022-07-30] MEDS: Lidocaine 4% Patch TD SCH (12:01)
[2022-07-30] MEDS: Polyethylene Glycol 3350 17 GM Packet PO SCH ×2 (12:01→20:19)
[2022-07-30] MEDS: Pregabalin 75 MG CAP PO SCH (12:02)
[2022-07-30] MEDS: Primidone 50 MG TAB PO SCH ×2 (12:03→20:21)
[2022-07-30] MEDS: Fish Oil 1,000 MG CAP PO SCH (12:03)
[2022-07-30] MEDS: Senokot S 8.6-50 MG TAB PO SCH ×2 (12:03→20:20)
[2022-07-30] MEDS: Bupropion 150 MG SR TAB PO SCH (12:03)
[2022-07-30] MEDS ORDERED: Bisacodyl 10 MG SUPP PR SCH ×3 (14:00→21:00)
[2022-07-30] MEDS ORDERED: Pantoprazole 40 MG VIAL IVP SCH (14:48)
[2022-07-30] MEDS ORDERED: Meropenem 1 GM in Sodium Chloride 0.9% 100 ML IVPB SCH (15:00)
[2022-07-30] MEDS: Sodium Chloride 0.9% 1,000 ML IV SCH (15:42)
[2022-07-30] MEDS ORDERED: Magnesium Citrate 300 ML BOT PO SCH (16:00)
[2022-07-30] MEDS: Mineral Oil ENEMA PR SCH ×3 (16:13→23:36)
[2022-07-30] MEDS: Bisacodyl 10 MG SUPP PR SCH ×2 (18:18→21:18)
[2022-07-30] MEDS: Tamsulosin HCl 0.4 MG CAP PO SCH (20:19)
[2022-07-30] MEDS: DULoxetine 30 MG CAP PO SCH (20:20)
[2022-07-30] MEDS: Aripiprazole 10 MG TAB PO SCH (20:20)
[2022-07-30] MEDS: Docusate 100 MG CAP PO SCH (20:20)
[2022-07-30] MEDS: Transdermal Patch Removal TOP SCH (21:16)
[2022-07-30] MEDS: Meropenem 1 GM in Sodium Chloride 0.9% 100 ML IVPB SCH (21:18)
[2022-07-31] MEDS: Bisacodyl 10 MG SUPP PR SCH ×6 (02:50→22:35)
[2022-07-31] MEDS: Sodium Chloride 0.9% 1,000 ML IV SCH ×2 (05:37→18:18)
[2022-07-31] MEDS: Mineral Oil ENEMA PR SCH ×6 (05:37→23:17)
[2022-07-31] MEDS: Meropenem 1 GM in Sodium Chloride 0.9% 100 ML IVPB SCH ×3 (06:01→22:35)
[2022-07-31] MEDS ORDERED: GoLYTELY 4,000 ml Bottle PO SCH (09:15)
[2022-07-31 09:17] LABS: Band 19 % (5-11); Hemoglobin 12.1 g/dL (14.0-18.0); Hypochromia SLIGHT = 6-15 cells (100X) (0-5/hpf); Lymphocytes 4 % (21-51); MDiff Complete? YES; Mean Corpuscular HGB CONC 32.8 g/dL (32.0-36.0); Mean Corpuscular Hemoglobin 31.4 pg (27.0-31.0); Mean Corpuscular Volume 95.7 fl (78.0-98.0); Mean Platelet Volume 9.3 fL (7.4-10.4); Monocytes 1 % (0-10); Neutrophil 73 % (42-75); Platelet Count 214 10x3/uL (130-400); Platelet Morphology Comment Appears Adequate; RBC Distribution Width 18.9 % (11.5-14.5); Reactive Lymphocytes 3 % (0-10); Red Blood Cell (RBC) Count 3.84 mill/uL (4.70-6.10); Stomatocytes SLIGHT = 2-5 cells (100X) (0-1/hpf); Tear Drops SLIGHT = 2-5 cells (100X) (0-1/hpf); White Blood Cell (WBC) Count 17.1 10x3/uL (4.8-10.8)
[2022-07-31] MEDS: Bupropion 150 MG SR TAB PO SCH (10:08)
[2022-07-31] MEDS: Acetaminophen 500 MG TAB PO SCH ×3 (10:35→20:20)
[2022-07-31] MEDS: Fish Oil 1,000 MG CAP PO SCH (10:35)
[2022-07-31] MEDS: Senokot S 8.6-50 MG TAB PO SCH ×2 (10:35→20:21)
[2022-07-31] MEDS: Primidone 50 MG TAB PO SCH ×2 (10:35→20:20)
[2022-07-31] MEDS: Docusate 100 MG CAP PO SCH ×2 (10:36→20:20)
[2022-07-31] MEDS: Lidocaine 4% Patch TD SCH (11:05)
[2022-07-31] MEDS: Polyethylene Glycol 3350 17 GM Packet PO SCH ×2 (11:05→20:19)
[2022-07-31] MEDS: Pantoprazole 40 MG VIAL IVP SCH (11:44)
[2022-07-31] MEDS ORDERED: Metoclopramide HCl 10 MG/2 ML VIAL IVP PRN (15:22)
[2022-07-31] MEDS: DULoxetine 30 MG CAP PO SCH (20:19)
[2022-07-31] MEDS: Aripiprazole 10 MG TAB PO SCH (20:20)
[2022-07-31] MEDS: Tamsulosin HCl 0.4 MG CAP PO SCH (20:20)
[2022-07-31] MEDS: Transdermal Patch Removal TOP SCH (20:58)
[2022-08-01] MEDS: Bisacodyl 10 MG SUPP PR SCH ×6 (02:37→21:15)
[2022-08-01] MEDS: Mineral Oil ENEMA PR SCH ×5 (04:39→21:00)
[2022-08-01] MEDS: Meropenem 1 GM in Sodium Chloride 0.9% 100 ML IVPB SCH ×3 (05:15→22:02)
[2022-08-01] MEDS: Senokot S 8.6-50 MG TAB PO SCH ×2 (08:47→21:14)
[2022-08-01] MEDS: Docusate 100 MG CAP PO SCH ×2 (08:48→21:14)
[2022-08-01] MEDS: Polyethylene Glycol 3350 17 GM Packet PO SCH ×2 (08:48→21:15)
[2022-08-01] MEDS: Acetaminophen 500 MG TAB PO SCH ×3 (08:48→21:14)
[2022-08-01] MEDS: Sodium Chloride 0.9% 1,000 ML IV SCH ×2 (08:49→21:15)
[2022-08-01] MEDS: Fish Oil 1,000 MG CAP PO SCH (08:49)
[2022-08-01] MEDS: Pantoprazole 40 MG VIAL IVP SCH (09:15)
[2022-08-01] MEDS: Lidocaine 4% Patch TD SCH (09:15)
[2022-08-01] MEDS: Primidone 50 MG TAB PO SCH ×2 (09:17→21:14)
[2022-08-01] MEDS: Bupropion 150 MG SR TAB PO SCH (09:17)
[2022-08-01] MEDS ORDERED: GoLYTELY 4,000 ml Bottle PO SCH (09:45)
[2022-08-01 10:28] LABS: #Eosinphils 0.1 thou/uL (0.0-0.7); #Lymphocytes 0.7 thou/uL (1.20-3.40); #Monocytes 0.3 thou/uL (0.11-0.59); #Neutrophils 5.6 thou/uL (1.40-6.50); %Basophils 0.4 % (0.0-1.0); %Eosinophils 0.9 % (0.0-10.0); %Lymphocytes 9.9 % (21.0-51.0); %Monocytes 4.1 % (0.0-10.0); %Neutrophils 84.8 % (42.0-75.0); Hemoglobin 10.5 g/dL (14.0-18.0); Mean Corpuscular HGB CONC 35.5 g/dL (32.0-36.0); Mean Corpuscular Hemoglobin 33.7 pg (27.0-31.0); Mean Corpuscular Volume 94.7 fl (78.0-98.0); Platelet Count 201 10x3/uL (130-400); RBC Distribution Width 18.3 % (11.5-14.5); Red Blood Cell (RBC) Count 3.12 mill/uL (4.70-6.10); White Blood Cell (WBC) Count 6.6 10x3/uL (4.8-10.8)
[2022-08-01 10:49] LABS: Phosphorus 1.6 mg/dL (2.3-4.7)
[2022-08-01 10:52] LABS: Anion Gap 15 mmol/L (10-20); BUN (Urea Nitrogen) 14 mg/dL (8.4-25.7); Calc. Creatinine Clearance 114 mL/min (70-130); Calcium 8.9 mg/dL (7.8-10.44); Carbon Dioxide 23 mmol/L (23-31); Chloride 107 mmol/L (98-107); Estimated GFR 98; Glucose 93 mg/dL (83-110); Magnesium 2.1 mg/dL (1.6-2.6); Potassium 3.5 mmol/L (3.5-5.1); Sodium 141 mmol/L (136-145)
[2022-08-01] MEDS: Metoclopramide HCl 10 MG/2 ML VIAL IVP SCH ×2 (17:18→23:44)
[2022-08-01] MEDS: Aripiprazole 10 MG TAB PO SCH (21:13)
[2022-08-01] MEDS: Tamsulosin HCl 0.4 MG CAP PO SCH (21:13)
[2022-08-01] MEDS: DULoxetine 30 MG CAP PO SCH (21:13)
[2022-08-01] MEDS: Transdermal Patch Removal TOP SCH (21:57)
[2022-08-02] MEDS: Mineral Oil ENEMA PR SCH ×4 (00:30→11:12)
[2022-08-02] MEDS: Bisacodyl 10 MG SUPP PR SCH ×5 (02:40→21:35)
[2022-08-02] MEDS: Sodium Chloride 0.9% 1,000 ML IV SCH (04:13)
[2022-08-02] MEDS: Acetaminophen 500 MG TAB PO PRN (04:18)
[2022-08-02] MEDS: Meropenem 1 GM in Sodium Chloride 0.9% 100 ML IVPB SCH ×3 (05:18→21:31)
[2022-08-02] MEDS: Metoclopramide HCl 10 MG/2 ML VIAL IVP SCH ×3 (05:32→16:55)
[2022-08-02 07:32] LABS: Hemoglobin 10.2 g/dL (14.0-18.0); Mean Corpuscular HGB CONC 32.5 g/dL (32.0-36.0); Mean Corpuscular Hemoglobin 30.3 pg (27.0-31.0); Mean Corpuscular Volume 93.2 fl (78.0-98.0); Mean Platelet Volume 8.4 fL (7.4-10.4); Platelet Count 229 10x3/uL (130-400); RBC Distribution Width 18.4 % (11.5-14.5); Red Blood Cell (RBC) Count 3.38 mill/uL (4.70-6.10); White Blood Cell (WBC) Count 4.1 10x3/uL (4.8-10.8)
[2022-08-02] MEDS: Acetaminophen 500 MG TAB PO SCH ×3 (08:32→21:18)
[2022-08-02] MEDS: Bupropion 150 MG SR TAB PO SCH (08:32)
[2022-08-02] MEDS: Senokot S 8.6-50 MG TAB PO SCH ×2 (08:34→21:19)
[2022-08-02] MEDS: Docusate 100 MG CAP PO SCH ×2 (08:35→21:18)
[2022-08-02] MEDS: Primidone 50 MG TAB PO SCH ×2 (08:35→21:19)
[2022-08-02] MEDS: Fish Oil 1,000 MG CAP PO SCH (08:35)
[2022-08-02] MEDS: Polyethylene Glycol 3350 17 GM Packet PO SCH ×2 (08:37→21:18)
[2022-08-02] MEDS: Pantoprazole 40 MG VIAL IVP SCH (08:37)
[2022-08-02] MEDS: Lidocaine 4% Patch TD SCH (08:46)
[2022-08-02 09:25] LABS: Anisocytosis MODERATE=16-30 cells (100X) (0-5/hpf); Band 3 % (5-11); Lymphocytes 25 % (21-51); MDiff Complete? YES; Monocytes 7 % (0-10); Neutrophil 63 % (42-75); Platelet Morphology Comment Appears Adequate
[2022-08-02] MEDS ORDERED: Neostigmine 0.5 MG in Admixture Fee 1 EACH SC SCH (10:00)
[2022-08-02] MEDS: Neostigmine 0.5 MG in Admixture Fee 1 EACH SC SCH (16:55)
[2022-08-02] MEDS: Aripiprazole 10 MG TAB PO SCH (21:18)
[2022-08-02] MEDS: Tamsulosin HCl 0.4 MG CAP PO SCH (21:18)
[2022-08-02] MEDS: DULoxetine 30 MG CAP PO SCH (21:18)
[2022-08-02] MEDS: Transdermal Patch Removal TOP SCH (21:20)
[2022-08-03] MEDS: Sodium Chloride 0.9% 1,000 ML IV SCH ×3 (00:53→23:50)
[2022-08-03] MEDS: Neostigmine 0.5 MG in Admixture Fee 1 EACH SC SCH ×5 (00:58→23:47)
[2022-08-03] MEDS: Metoclopramide HCl 10 MG/2 ML VIAL IVP SCH ×5 (00:59→23:27)
[2022-08-03] MEDS: Bisacodyl 10 MG SUPP PR SCH ×3 (05:21→23:00)
[2022-08-03] MEDS: Meropenem 1 GM in Sodium Chloride 0.9% 100 ML IVPB SCH ×3 (05:21→23:00)
[2022-08-03 07:30] LABS: #Eosinphils 0.2 thou/uL (0.0-0.7); #Lymphocytes 1.5 thou/uL (1.20-3.40); #Monocytes 0.4 thou/uL (0.11-0.59); #Neutrophils 2.4 thou/uL (1.40-6.50); %Basophils 0.9 % (0.0-1.0); %Eosinophils 4.3 % (0.0-10.0); %Lymphocytes 32.1 % (21.0-51.0); %Monocytes 9.4 % (0.0-10.0); %Neutrophils 53.3 % (42.0-75.0); Hemoglobin 11.5 g/dL (14.0-18.0); Mean Corpuscular HGB CONC 32.2 g/dL (32.0-36.0); Mean Corpuscular Volume 93.2 fl (78.0-98.0); Mean Platelet Volume 8.4 fL (7.4-10.4); Platelet Count 259 10x3/uL (130-400); Red Blood Cell (RBC) Count 3.82 mill/uL (4.70-6.10); White Blood Cell (WBC) Count 4.5 10x3/uL (4.8-10.8)
[2022-08-03 07:54] LABS: Anion Gap 16 mmol/L (10-20); BUN (Urea Nitrogen) 9 mg/dL (8.4-25.7); Calc. Creatinine Clearance 114 mL/min (70-130); Calcium 8.6 mg/dL (7.8-10.44); Carbon Dioxide 23 mmol/L (23-31); Chloride 107 mmol/L (98-107); Estimated GFR 98; Glucose 73 mg/dL (83-110); Potassium 3.3 mmol/L (3.5-5.1); Sodium 143 mmol/L (136-145)
[2022-08-03] MEDS ORDERED: Potassium Phosphate 30 MMOL in Sodium Chloride 0.9% 250 ML 250 ML IVPB SCH (08:00)
[2022-08-03] MEDS: Docusate 100 MG CAP PO SCH ×2 (08:26→21:21)
[2022-08-03] MEDS: Polyethylene Glycol 3350 17 GM Packet PO SCH ×2 (08:26→21:20)
[2022-08-03] MEDS: Fish Oil 1,000 MG CAP PO SCH (08:26)
[2022-08-03] MEDS: Bupropion 150 MG SR TAB PO SCH (08:26)
[2022-08-03] MEDS: Acetaminophen 500 MG TAB PO SCH ×3 (08:26→21:19)
[2022-08-03] MEDS: Senokot S 8.6-50 MG TAB PO SCH ×2 (08:26→21:21)
[2022-08-03] MEDS: Primidone 50 MG TAB PO SCH ×2 (08:27→21:21)
[2022-08-03] MEDS: Pantoprazole 40 MG VIAL IVP SCH (08:27)
[2022-08-03] MEDS: Lidocaine 4% Patch TD SCH (08:44)
[2022-08-03] MEDS ORDERED: Magnesium 2 GM/50 ML(in water) 2 GM in Premix Bag 1 BAG IVPB SCH (12:30)
[2022-08-03] MEDS ORDERED: Phenol 118 ML BOT PO PRN (16:06)
[2022-08-03] MEDS: DULoxetine 30 MG CAP PO SCH (21:20)
[2022-08-03] MEDS: Aripiprazole 10 MG TAB PO SCH (21:21)
[2022-08-03] MEDS: Tamsulosin HCl 0.4 MG CAP PO SCH (21:28)
[2022-08-03] MEDS: Transdermal Patch Removal TOP SCH (21:30)
[2022-08-04] MEDS: Bisacodyl 10 MG SUPP PR SCH ×3 (05:30→22:28)
[2022-08-04] MEDS: Meropenem 1 GM in Sodium Chloride 0.9% 100 ML IVPB SCH ×2 (05:30→14:15)
[2022-08-04] MEDS: Neostigmine 0.5 MG in Admixture Fee 1 EACH SC SCH ×3 (05:31→17:38)
[2022-08-04] MEDS: Metoclopramide HCl 10 MG/2 ML VIAL IVP SCH ×3 (05:31→17:38)
[2022-08-04 06:50] LABS: #Eosinphils 0.3 thou/uL (0.0-0.7); #Lymphocytes 1.4 thou/uL (1.20-3.40); #Monocytes 0.5 thou/uL (0.11-0.59); #Neutrophils 2.5 thou/uL (1.40-6.50); %Basophils 0.9 % (0.0-1.0); %Eosinophils 5.8 % (0.0-10.0); %Lymphocytes 30.7 % (21.0-51.0); %Monocytes 9.6 % (0.0-10.0); %Neutrophils 53.1 % (42.0-75.0); Hemoglobin 10.6 g/dL (14.0-18.0); Mean Corpuscular HGB CONC 34.2 g/dL (32.0-36.0); Mean Corpuscular Hemoglobin 31.2 pg (27.0-31.0); Mean Corpuscular Volume 91.2 fl (78.0-98.0); Mean Platelet Volume 8.2 fL (7.4-10.4); Platelet Count 250 10x3/uL (130-400); RBC Distribution Width 17.8 % (11.5-14.5); Red Blood Cell (RBC) Count 3.39 mill/uL (4.70-6.10); White Blood Cell (WBC) Count 4.7 10x3/uL (4.8-10.8)
[2022-08-04 07:23] LABS: Anion Gap 14 mmol/L (10-20); BUN (Urea Nitrogen) 5 mg/dL (8.4-25.7); Calc. Creatinine Clearance 118 mL/min (70-130); Calcium 8.2 mg/dL (7.8-10.44); Carbon Dioxide 23 mmol/L (23-31); Chloride 108 mmol/L (98-107); Estimated GFR 99; Glucose 74 mg/dL (83-110); Potassium 3.2 mmol/L (3.5-5.1); Sodium 142 mmol/L (136-145)
[2022-08-04] MEDS: Fish Oil 1,000 MG CAP PO SCH (09:03)
[2022-08-04] MEDS: Docusate 100 MG CAP PO SCH ×2 (09:03→21:33)
[2022-08-04] MEDS: Bupropion 150 MG SR TAB PO SCH (09:03)
[2022-08-04] MEDS: Primidone 50 MG TAB PO SCH ×2 (09:03→21:33)
[2022-08-04] MEDS: Acetaminophen 500 MG TAB PO SCH ×3 (09:03→21:32)
[2022-08-04] MEDS: Pantoprazole 40 MG VIAL IVP SCH (09:04)
[2022-08-04] MEDS: Polyethylene Glycol 3350 17 GM Packet PO SCH ×2 (09:05→21:34)
[2022-08-04] MEDS: Lidocaine 4% Patch TD SCH (11:05)
[2022-08-04] MEDS: Sodium Chloride 0.9% 1,000 ML IV SCH (14:16)
[2022-08-04] MEDS: Calcium Carbonate 500 MG ChewTAB PO PRN (17:39)
[2022-08-04] MEDS: Acetaminophen 500 MG TAB PO PRN (17:39)
[2022-08-04] MEDS ORDERED: Ketorolac Tromethamine 30 MG/ML VIAL IVP PRN (17:43)
[2022-08-04] MEDS ORDERED: Lidocaine 4% Patch TD SCH (18:00)
[2022-08-04] MEDS: Tamsulosin HCl 0.4 MG CAP PO SCH (21:30)
[2022-08-04] MEDS: Aripiprazole 10 MG TAB PO SCH (21:33)
[2022-08-04] MEDS: DULoxetine 30 MG CAP PO SCH (21:33)
[2022-08-04] MEDS: Transdermal Patch Removal TOP SCH (21:34)
[2022-08-04] MEDS: Ciprofloxacin 500 MG TAB PO SCH (21:35)
[2022-08-05] MEDS: Metoclopramide HCl 10 MG/2 ML VIAL IVP SCH ×5 (00:36→23:40)
[2022-08-05] MEDS: Neostigmine 0.5 MG in Admixture Fee 1 EACH SC SCH ×2 (00:37→05:39)
[2022-08-05] MEDS: Bisacodyl 10 MG SUPP PR SCH ×3 (05:36→21:26)
[2022-08-05] MEDS: Sodium Chloride 0.9% 1,000 ML IV SCH (05:37)
[2022-08-05] MEDS: Ciprofloxacin 500 MG TAB PO SCH ×2 (05:39→21:25)
[2022-08-05 08:21] LABS: #Eosinphils 0.3 thou/uL (0.0-0.7); #Lymphocytes 1.9 thou/uL (1.20-3.40); #Monocytes 0.5 thou/uL (0.11-0.59); #Neutrophils 3.6 thou/uL (1.40-6.50); %Basophils 0.4 % (0.0-1.0); %Eosinophils 5.4 % (0.0-10.0); %Lymphocytes 29.5 % (21.0-51.0); %Neutrophils 56.6 % (42.0-75.0); Hemoglobin 10.9 g/dL (14.0-18.0); Mean Corpuscular HGB CONC 33.4 g/dL (32.0-36.0); Mean Corpuscular Volume 92.6 fl (78.0-98.0); Mean Platelet Volume 8.4 fL (7.4-10.4); Platelet Count 266 10x3/uL (130-400); RBC Distribution Width 17.6 % (11.5-14.5); Red Blood Cell (RBC) Count 3.51 mill/uL (4.70-6.10); White Blood Cell (WBC) Count 6.4 10x3/uL (4.8-10.8)
[2022-08-05 09:08] LABS: Anion Gap 17 mmol/L (10-20); BUN (Urea Nitrogen) Less than 4 mg/dL (8.4-25.7); Calc. Creatinine Clearance 130 mL/min (70-130); Calcium 8.4 mg/dL (7.8-10.44); Carbon Dioxide 21 mmol/L (23-31); Chloride 105 mmol/L (98-107); Estimated GFR 102; Glucose 77 mg/dL (83-110); Potassium 2.9 mmol/L (3.5-5.1); Sodium 140 mmol/L (136-145)
[2022-08-05] MEDS: Primidone 50 MG TAB PO SCH ×2 (09:10→21:24)
[2022-08-05] MEDS: Fish Oil 1,000 MG CAP PO SCH (09:10)
[2022-08-05] MEDS: Acetaminophen 500 MG TAB PO SCH ×3 (09:11→21:26)
[2022-08-05] MEDS: Bupropion 150 MG SR TAB PO SCH (09:11)
[2022-08-05] MEDS: Polyethylene Glycol 3350 17 GM Packet PO SCH ×2 (09:12→21:25)
[2022-08-05] MEDS: Pantoprazole 40 MG VIAL IVP SCH (09:12)
[2022-08-05] MEDS: Lidocaine 4% Patch TD SCH (09:31)
[2022-08-05] MEDS: Docusate 100 MG CAP PO SCH ×2 (09:42→21:24)
[2022-08-05] MEDS ORDERED: Electrolyte Replacement Protocol 1 EACH FS SCH (16:45)
[2022-08-05] MEDS ORDERED: Electrolyte Replacement Protocol FS PRN (17:00)
[2022-08-05] MEDS ORDERED: Potassium Chloride 20 MEQ TAB PO SCH (17:00)
[2022-08-05] MEDS ORDERED: Potassium Chloride 40 MEQ in Premix Bag 1 BAG IVPB SCH (17:00)
[2022-08-05] MEDS: Aripiprazole 10 MG TAB PO SCH (21:24)
[2022-08-05] MEDS: DULoxetine 30 MG CAP PO SCH (21:25)
[2022-08-05] MEDS: Tamsulosin HCl 0.4 MG CAP PO SCH (21:25)
[2022-08-05] MEDS: Transdermal Patch Removal TOP SCH (21:26)
[2022-08-06] MEDS: Bisacodyl 10 MG SUPP PR SCH (06:19)
[2022-08-06] MEDS: Metoclopramide HCl 10 MG/2 ML VIAL IVP SCH ×2 (06:21→13:17)
[2022-08-06] MEDS: Ciprofloxacin 500 MG TAB PO SCH (06:21)
[2022-08-06 08:17] LABS: Anion Gap 13 mmol/L (10-20); BUN (Urea Nitrogen) Less than 4 mg/dL (8.4-25.7); Calc. Creatinine Clearance 134 mL/min (70-130); Calcium 8.6 mg/dL (7.8-10.44); Carbon Dioxide 27 mmol/L (23-31); Chloride 104 mmol/L (98-107); Estimated GFR 103; Glucose 93 mg/dL (83-110); Potassium 3.3 mmol/L (3.5-5.1); Sodium 141 mmol/L (136-145)
[2022-08-06] MEDS ORDERED: Potassium Chloride 20 MEQ TAB PO SCH (09:15)
[2022-08-06] MEDS: Pantoprazole 40 MG VIAL IVP SCH (09:25)
[2022-08-06] MEDS: Acetaminophen 500 MG TAB PO SCH (09:26)
[2022-08-06] MEDS: Bupropion 150 MG SR TAB PO SCH (09:27)
[2022-08-06] MEDS: Primidone 50 MG TAB PO SCH (09:27)
[2022-08-06] MEDS: Fish Oil 1,000 MG CAP PO SCH (09:27)
[2022-08-06] MEDS: Docusate 100 MG CAP PO SCH (09:27)
[2022-08-06] MEDS: Polyethylene Glycol 3350 17 GM Packet PO SCH (09:39)
[2022-08-06] MEDS: Lidocaine 4% Patch TD SCH (09:39)
[2022-08-06] MEDS ORDERED: PHOS-NAK 1 PKT PACK PO SCH (10:00)
[2022-08-06 13:00] VITALS: BP 142/80; TEMP 98.2
== END 2022-08-06 13:40 | DRG 602 ==
LOC: ERS 15:56 → ERHOLD 21:10 → OBSVTOIN 22:38 → NEURO 07-21 00:55 → T4-B 07-29 18:03
PROVIDERS: ADMIT Internal Medicine; ATTEND Family Medicine
PROC: 0D9670Z Drainage of Stomach with Drainage Device, Via Natural or Artificial Opening (ICD-10-PCS; principal; 2022-07-20)
PROC: 02HV33Z Insertion of Infusion Device into Superior Vena Cava, Percutaneous Approach (ICD-10-PCS; 2022-08-02)
PROC: B548ZZA Ultrasonography of Superior Vena Cava, Guidance (ICD-10-PCS; 2022-08-02)
PROC: 3E0336Z Introduction of Nutritional Substance into Peripheral Vein, Percutaneous Approach (ICD-10-PCS; 2022-08-02)
DX: L03.115 Cellulitis of right lower limb (principal); G93.41 Metabolic encephalopathy; K56.690 Other partial intestinal obstruction; N39.0 Urinary tract infection, site not specified; F03.918 Unspecified dementia, unspecified severity, with other behavioral disturbance; I69.391 Dysphagia following cerebral infarction; R13.10 Dysphagia, unspecified; K56.41 Fecal impaction; N20.0 Calculus of kidney; N40.1 Benign prostatic hyperplasia with lower urinary tract symptoms; R33.8 Other retention of urine; F01.50 Vascular dementia, unspecified severity, without behavioral disturbance, psychotic disturbance, mood disturbance, and anxiety; R53.81 Other malaise; Z66 Do not resuscitate; F32.A Depression, unspecified; L89.151 Pressure ulcer of sacral region, stage 1; G83.81 Brown-Sequard syndrome; F43.10 Post-traumatic stress disorder, unspecified; B96.5 Pseudomonas (aeruginosa) (mallei) (pseudomallei) as the cause of diseases classified elsewhere; G62.9 Polyneuropathy, unspecified; Z90.49 Acquired absence of other specified parts of digestive tract; Z90.89 Acquired absence of other organs; Z80.1 Family history of malignant neoplasm of trachea, bronchus and lung; Z80.3 Family history of malignant neoplasm of breast; Z87.891 Personal history of nicotine dependence; Z79.899 Other long term (current) drug therapy; Z79.02 Long term (current) use of antithrombotics/antiplatelets
CPT/HCPCS: 36415; 36416; 36569; 70450; 70551; 71045; 71046; 74018; 74176; 74177; 74250; 80048; 80053; 80202; 80306; 81001; 81003; 81015; 82330; 83690; 83735; 84100; 84443; 84484; 85025; 87040; 87077; 87086; 87186; 93005; 95712; 95819; 95957; C1751; C9113; J1650; J1885; J1956; J2185; J2405; J2710; J2765; J3370; J3475; J3480; J3490; J7030; J7050; Q9967